=== PATIENT | female | born 1975 ===

== ENCOUNTER 2019-04-12 10:20 | Outpatient (CLI) | payer MEDICAID ==
[2019-04-12] MEDS ORDERED: iohexol 300mg/ml 100ml inj. ONE (10:24)
== END 2019-04-12 23:59 | disposition home or self-care (01) ==
LOC: 64 CT 10:20
PROVIDERS: ATTEND Internal Medicine
DX: G06.1 Intraspinal abscess and granuloma (principal)
CPT/HCPCS: 74177; Q9967